=== PATIENT | male | born 1985 | race Caucasian/White ===

== ENCOUNTER 2018-02-25 20:15 | Emergency (ER) | payer OTHER ==
[~2018-02-25] VITALS: Ht 180.3 cm; Wt 86.3 kg
[2018-02-25 20:31] VITALS: BP 140/85
--- NOTE | 2018-02-25 20:36 | NUR ---
PT IN ER LOBBY ER BED [facility]
--- NOTE | 2018-02-25 21:41 | NUR ---
PT TAKEN TO BED 12
--- NOTE | 2018-02-25 21:45 | NUR ---
Pt presents to ED with complaints of left lower leg pain for about 1 week. Patient has swelling, erythema and water filled blisters on lower leg. Pt ambulates with steady gait. VSS. NAD noted.
[2018-02-25] MEDS ORDERED: LIDOCAINE 2% 1000 MG/50 ML VIAL INJ ONE (21:55)
[2018-02-25] MEDS ORDERED: CLINDAMYCIN 600 MG/4 ML VIAL IM ONE (22:45)
[2018-02-25] MEDS ORDERED: IBUPROFEN 800 MG TAB PO ONE (22:45)
[2018-02-25 23:14] VITALS: BP 132/80
--- NOTE | 2018-02-25 23:14 | NUR ---
Patient discharged with v/s stable. Written and verbal after care instructions given and explained. Patient alert, oriented and verbalized understanding of instructions. Ambulatory with steady gait. All questions addressed prior to discharge. ID band removed. Patient advised to follow up with PMD. Rx of Promethazine, Motrin 800mg, Clindamycin given. Patient educated on indication of medication including possible reaction and side effects. Opportunity to ask questions provided and answered.
== END 2018-02-25 23:14 | disposition home or self-care (01) ==
LOC: MED 20:15
DX: L03.116 Cellulitis of left lower limb (principal); J06.9 Acute upper respiratory infection, unspecified; F17.210 Nicotine dependence, cigarettes, uncomplicated
CPT/HCPCS: 96372; 99283; J3490; J2001